=== PATIENT | male | born 1945 | race Caucasian/White ===

== ENCOUNTER 2020-12-30 12:57 | Day surgery (SDC) | payer MEDICARE ==
[~2020-12-30] VITALS: Ht 177.8 cm; Wt 113.4 kg
[~2020-12-30 12:57] MED LIST: ACET325 PO; ASPI81CH; CETI5 PO; ELIQUIS5 MG; METO25ER PO; Prilosec Otc20 MG; Prilosec Otc20 MG PO; Prinivil10 MG
[2020-12-30] MEDS ORDERED: FISH OIL 1,2001 EAC1 (13:20)
[2020-12-30] MEDS ORDERED: CO Q1060 MG (13:21)
== END 2020-12-30 14:20 | disposition home or self-care (01) ==
LOC: ORSCSDS 12:57
PROVIDERS: Student in an Organized Health Care Education/Training Program
PROC: 0DB58ZX Excision of Esophagus, Via Natural or Artificial Opening Endoscopic, Diagnostic (ICD-10-PCS; principal; 2020-12-30 14:15)
DX: K21.9 Gastro-esophageal reflux disease without esophagitis (principal); I48.91 Unspecified atrial fibrillation; E66.01 Morbid (severe) obesity due to excess calories; Z68.37 Body mass index [BMI] 37.0-37.9, adult; G47.33 Obstructive sleep apnea (adult) (pediatric); R10.13 Epigastric pain; I10 Essential (primary) hypertension; F17.210 Nicotine dependence, cigarettes, uncomplicated; Z79.01 Long term (current) use of anticoagulants; Z79.899 Other long term (current) drug therapy
CPT/HCPCS: 88305; J2704; J7120